=== PATIENT | male | born 1940 | race Caucasian/White ===

== ENCOUNTER 2020-03-16 15:04 | Outpatient (CLI) | payer MEDICARE, BC ==
[~2020-03-16 15:04] MED LIST: Iopamidol-370 76% 500 ML 1 ML ONE
--- NOTE | 2020-03-16 15:59 | CT ---
EXAM: CT Brain W WO Con DATE: 03/16/2020 3:35 PM INDICATION: Altered mental status with history of Parkinson's disease. COMPARISON: None. FINDING: There is mild generalized cerebral and cerebellar atrophy. There is mild chronic small vess el white matter ischemic change. No definite acute infarct, hemorrhage or hydrocephalus is present. The septum pellucidum and third ventricle are midline. No abnormal region of enhancement is demonstra isma. There is mild mucosal thickening within the posterior right ethmoid air cells. Mastoid air cells are clear. The remaining paranasal sinuses are clear. The skull is intact. IMPRESSION: 1. No acute intracranial abnormality. 2. Mild generalized cerebral and cerebellar atrophy. 3. Mild chronic small vessel white matter ischemic change. 4. Mild paranasal sinus disease.
== END 2020-03-16 15:05 | disposition home or self-care (01) ==
LOC: BICCT 15:04
PROVIDERS: ATTEND Specialist
DX: R41.82 Altered mental status, unspecified (principal); G31.9 Degenerative disease of nervous system, unspecified; J34.89 Other specified disorders of nose and nasal sinuses
CPT/HCPCS: 36415; 70470; 80053; 80061; Q9967